=== PATIENT | female | born 1950 | race Caucasian/White ===

== ENCOUNTER 2017-10-28 07:38 | Day surgery (SDC) | payer MEDICARE, MEDICAID ==
[2017-10-28] MEDS ORDERED: ACETAZOLAMIDE 250 MG PO ONE (08:09)
[2017-10-28] MEDS: PROPARACAINE HCL 0.5% OPHTHALMIC SOL ONE ×3 (08:17→09:39)
[2017-10-28] MEDS: PHENYLEPHRINE HCL 10% OPHTHAL SOL ONE ×2 (08:18→08:32)
[2017-10-28] MEDS: CYCLOPENTOLATE 1% SOL ONE ×2 (08:18→08:32)
[2017-10-28] MEDS: KETOROLAC 0.5% OPTH 60 DROP SOL ONE ×2 (08:18→08:32)
[2017-10-28 08:23] VITALS: O2SAT 94
[2017-10-28] MEDS ORDERED: MIDAZOLAM 2 MG/2 ML SOL ONE (08:33)
[2017-10-28] MEDS ORDERED: POVIDONE IODINE 5% SOL ONE (09:29)
[2017-10-28] MEDS ORDERED: LIDOCAINE HCL 1% MPF SOL ONE (09:29)
[2017-10-28] MEDS ORDERED: BSS 500 ML 500 ML IR ONE (09:29)
[2017-10-28 10:12] VITALS: BP 161/81; PULSE 55; RESP 18; TEMP 96.6
== END 2017-10-28 10:29 | disposition home or self-care (01) | DRG 125 ==
LOC: SURG 07:38
PROVIDERS: ATTEND Ophthalmology
DX: H25.9 Unspecified age-related cataract (principal)
CPT/HCPCS: J2250; J2001

== ENCOUNTER 2019-07-07 15:20 | Emergency (ER) | payer OTHER | END 2019-07-07 16:19 | disposition home or self-care (01) | LOC: ED 15:20 ==